=== PATIENT | female | born 1960 | race Two or more races ===

== ENCOUNTER 2024-05-20 14:40 | Outpatient (AMB) | payer OTHER, MEDICARE, SELFPAY ==
[2024-05-20 15:14] VITALS: BP 153/84; PULSE 90; RESP 18; TEMP 36.3; O2SAT 97; BMI 33.7
--- NOTE | 2024-05-20 15:14 | RHCORTHONT_ITS ---
Vital signs 05/20/24 15:14 Height 1.7 m Height Method Stated Weight 97.551 kg Weight Measurement Method Standing Scale BMI 33.7 BP 153/84 H Blood Pressure Source Automatic Cuff Blood Pressure Location Right Upper Arm Position Sitting Respiration 18 Pulse 90 Pulse Source Monitor Temp 97.3 F Temp Source Temporal Artery Scan Pulse Oximetry (%) 97 Oxygen Delivery Method Room Air Med/Allergies Allergies & Medications Allergies No Known Allergies Allergy (Verified 05/20/24 15:15) Medication Reconciliation chlorthalidone 25 mg tablet 25 mg PO QDAY 12/25/23 [History Confirmed 05/20/24] ibuprofen 800 mg tablet 800 mg PO DAILY 12/25/23 [History Confirmed 05/20/24] metoprolol succinate 50 mg tablet,extended release 24 hr 50 mg PO QDAY 12/25/23 [History Confirmed 05/20/24] tkmxwtyu-stkm-pesw 8 mg-folic 400 mcg-K 50 mcg-lutein 300 mcg tablet (Centrum Silver Women) 1 tab PO QDAY 12/25/23 [History Confirmed 05/20/24] valsartan 40 mg tablet 40 mg PO BID 12/25/23 [History Confirmed 05/20/24] acetaminophen 500 mg tablet (Acetaminophen Extra Strength) 1,000 mg (2 x 500 mg) PO Q6H PRN pain #90 tabs 01/02/24 [Rx Confirmed 05/20/24] aspirin 81 mg tablet,delayed release 81 mg PO BID #60 tabs 01/02/24 [Rx Confirmed 05/20/24] doxycycline hyclate 100 mg tablet 100 mg PO BID #14 tabs 01/02/24 [Rx Confirmed 05/20/24] gabapentin 300 mg capsule 300 mg PO .qhs #30 caps 01/02/24 [Rx Confirmed ] oxycodone 5 mg tablet 5 mg PO Q6H PRN pain #28 tabs 01/02/24 [Rx Confirmed 05/20/24] sennosides 8.6 mg-docusate sodium 50 mg tablet (Senna-S) 1 tab-cap PO QDAY #30 tabs 01/02/24 [Rx Confirmed 05/20/24] Exam Exam Patient is in no acute distress and is cooperative with the examination today. Breathing is nonlabored. In no respiratory distress. Bilateral extremities were evaluated and demonstrates sensation intact to light touch. Palpable pedal pulses are present. No significant edema is present. Bilateral hips were examined. The patient has no pain with log roll of the hips. Internal rotation to 30 degrees and external rotation to 30 degrees is painless. Negative FADIR. Incision is clean dry and intact Right knee x-rays demonstrate a cemented total knee replacement good alignment position. Assessment and Plan Problem List (1) Bilateral primary osteoarthritis of knee: Status: Acute Plan: Patient is doing well status post right total knee replacement. She is doing well and has no issues with the right knee. The left knee bothers her significantly more. She would like to hold off on surgery for the left knee for now Advanced Care Planning Discussion Advance care planning discussed with:: patient Office Procedures GNS Level of Care Nursing/Assessment Patient Status: Established Patient Nursing Assessment/Reassesment: Medication Reconciliation, Update PMH in EMR and Vital Signs Coordination of Care: Complex Care and Chronic Disease 1-5, Education Complex Pt/Fam, Consent,records obtained, informed consent, Results/Orders obtained and Staff clarify orders Special Needs: Language special needs Established Patient Charge Established Patient Point Assignment: 95 Established Patient Point Charge: EP Level 3 (80-115) NV Intake Visit Data Collection New Patient or Established: Established Patient (seen at [facility] within 3 years) Reason for Visit:: 2 MONTH 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 PCP or OBGYN visit in last 3 months: Yes Hx Now: No Do You Feel Safe at Home: Yes Authorities Contacted: N/A Questionairres Past Medical History Past Medical History Have you ever been diagnosed with any of the following: Neurological Problems Seizures: No Cardiology Problems Congestive Heart Failure: No Hypertension: Yes Varicose Veins: Yes Respiratory Problems Chronic Obstructive Pulmonary Disease (COPD): No Smoking: No Smoking Exposure: No Stomache/Intestinal Problems Hepatitis: No Obesity: Yes Genital/Urinary Problems Renal Disease: No Reproductive Problems Previous Pregnancies: Yes Musculoskeletal Problems Arthritis: Yes Endocrine Problems Diabetes Mellitus Type 1: No Diabetes Mellitus Type 2: No Psychologic Problems Depression: Yes (has med but does not take them) Anxiety: Yes Other Problems Hospitalization: No Shingles: No Blood Transfusions: No Blood Transfusion Reaction: No Anesthesia Reactions: No Chicken Pox: Yes Measles: Yes Mumps: Yes Cancer: No Subjective Visit Visit for: follow up visit Immunization / Flu Flu Vaccine in the Last 12 Months: Yes Flu Vaccine Exclusion Criteria: Already Received History of Present Illness Chief complaint: 2 MONTH FOLLOW UP Patient is 5 months out s/p R TKA and is doing well. She has no knee painOn the right side. The left side is starting affect her quality life and happiness. She is taking about once he went to get this done Personal History Occupation: [employer] PMH: BMI BMI Counceling provided: Yes Pain Pain level (0-10): 0 Pain duration: none Ambulatory data Ambulatory device: none Treatments Improvement with previous injections: No Improvement with PT: No Improvement with NSAIDS: n/a Review of Systems Review of Systems: All systems negative unless otherwise noted in HPI.
== END 2024-05-20 15:51 | disposition home or self-care (01) ==
PROVIDERS: PCP Physician Assistant; Referring Provider Physician Assistant; Supervising Provider Orthopaedic Surgery Adult Reconstructive Orthopaedic Surgery; Visit Provider Orthopaedic Surgery Adult Reconstructive Orthopaedic Surgery
DX: M17.0 Bilateral primary osteoarthritis of knee (principal); Z96.651 Presence of right artificial knee joint; I10 Essential (primary) hypertension
CPT/HCPCS: 99213; G0463